=== PATIENT | male | born 1970 | race Caucasian/White ===

== ENCOUNTER 2018-10-26 12:29 | Emergency (ER) | payer MEDICAID ==
[~2018-10-26] VITALS: Ht 185.4 cm; Wt 99.8 kg
[2018-10-26 12:30] VITALS: BP 120/74
== END 2018-10-26 13:21 | disposition home or self-care (01) ==
LOC: ER 12:33
DX: G47.00 Insomnia, unspecified (principal); Z60.2 Problems related to living alone